=== PATIENT | female | born 1935 | race Caucasian/White ===

== ENCOUNTER 2019-11-01 21:01 | Inpatient (IN) | payer OTHER, MEDICAID ==
[~2019-11-01] VITALS: Ht 152.4 cm; Wt 105.7 kg
[~2019-11-01 21:01] MED LIST: CALCIUM CARBONATE PO; LEVO75TA7 PO; OMEG1CAP17 PO; OXYC-100 PO; TRAM50TA PO
[2019-11-01] MEDS ORDERED: MORPHINE SULFATE 4 MG/ML CPJ (NOT FOR IM USE) IV STA (22:48)
[2019-11-01] MEDS ORDERED: ONDANSETRON HCL 4MG/2ML INJ IV STA (22:48)
[2019-11-01] MEDS ORDERED: SODIUM CHLORIDE 0.9% 1,000 ML IV ONE (22:48)
[2019-11-01 23:13] LABS: BASOPHILS % 0.6 % (0.0-2.0); EOSINOPHILS % 0.8 % (0.0-5.0); HEMATOCRIT. 40.7 % (36.0-48.0); LYMPHOCYTES % 13.1 % (20.0-50.0); MEAN CORPUSCULAR HEMOGLOBIN 32.5 pg (28.0-32.0); MEAN CORPUSCULAR VOLUME 94.6 fL (81.0-99.0); MEAN PLATELET VOLUME 9.5 fl (7.4-10.4); MONOCYTES % 5.7 % (2.0-8.0); NEUTROPHILS % 79.8 % (40.0-76.0); PLATELET 218 x1000/uL (130-400); RED CELL DISTRIBUTION WIDTH 13.2 % (11.6-14.6)
[2019-11-01 23:19] LABS: CHLORIDE 110 mEq/L (98-107)
[2019-11-02 01:34] LABS: CLARITY URINE CLOUDY (CLEAR); COLOR URINE YELLOW (YELLOW); KETONES URINE NEGATIVE (NEGATIVE); LEUKOCYTE ESTERASE URINE 1+ (NEGATIVE); NITRITE URINE NEGATIVE (NEGATIVE); OCCULT BLOOD URINE NEGATIVE (NEGATIVE); PROTEIN URINE TRACE (NEGATIVE); SPECIFIC GRAVITY URINE 1.015 (1.005-1.030)
[2019-11-02] MEDS ORDERED: MORPHINE SULFATE 4 MG/ML CPJ (NOT FOR IM USE) IV ONE (02:15)
[2019-11-02 06:00] VITALS: BP 140/74
[2019-11-02] MEDS ORDERED: ONDANSETRON HCL 4MG/2ML INJ IV PRN (06:15)
[2019-11-02] MEDS: LEVOTHYROXINE SODIUM 75MCG TABLET PO SCH (08:22)
[2019-11-02 08:38] VITALS: BP 143/61
[2019-11-02] MEDS: MORPHINE SULFATE 4 MG/ML CPJ (NOT FOR IM USE) IV PRN ×2 (10:30→16:59)
[2019-11-02 12:00] VITALS: BP 137/73
[2019-11-02] MEDS: DEXT 5%/0.45% NACL 1000ML 1,000 ML IV SCH (15:54)
[2019-11-02 16:11] VITALS: BP 152/66
[2019-11-02] MEDS: CEFTRIAXONE 1 G PREMIX 50 ML IV SCH (16:55)
[2019-11-02 20:31] VITALS: BP 132/72
[2019-11-03 00:34] VITALS: BP 122/51
[2019-11-03] MEDS ORDERED: CHLORHEXIDINE GLUCONATE 4% EXTERNAL USE TOP SCH (07:00)
[2019-11-03] MEDS: LEVOTHYROXINE SODIUM 75MCG TABLET PO SCH (07:20)
[2019-11-03 08:19] VITALS: BP 173/76
[2019-11-03] MEDS ORDERED: MORPHINE SULFATE 2 MG/ML CPJ (NOT FOR IM USE) IV SCH (08:45)
[2019-11-03] MEDS ORDERED: BUPIVACAINE HCL/EPINEPHRINE/PF 0.5%/0.0005 10ML ONE (09:41)
[2019-11-03] MEDS ORDERED: FENTANYL CITRATE/PF 50MCG/ML 2ML VIAL ONE (09:52)
[2019-11-03] MEDS ORDERED: MIDAZOLAM HCL 2 MG/2 ML VIAL ONE (09:52)
[2019-11-03] MEDS ORDERED: EPHEDRINE SULFATE 50MG/ML VIAL ONE (09:56)
[2019-11-03] MEDS ORDERED: DEXAMETHASONE 4MG/ML 1ML VIAL ONE (10:18)
[2019-11-03] MEDS ORDERED: GLYCOPYRROLATE 0.2 MG/ML 2ML VIAL ONE (10:47)
[2019-11-03] MEDS ORDERED: SKIN ADHESIVE 0.7 GM EA TOP ONE (11:38)
[2019-11-03] MEDS ORDERED: ONDANSETRON HCL 4MG/2ML INJ ONE (12:13)
[2019-11-03] MEDS ORDERED: MAGNESIUM HYDROXIDE 400MG/5ML 30ML UDC PO PRN (12:30)
[2019-11-03] MEDS ORDERED: MORPHINE SULFATE 4 MG/ML CPJ (NOT FOR IM USE) IV PRN (12:30)
[2019-11-03] MEDS ORDERED: ONDANSETRON HCL 4MG/2ML INJ IV PRN (12:30)
[2019-11-03] MEDS ORDERED: ACETAMINOPHEN 325MG TABLET PO PRN (12:30)
[2019-11-03] MEDS ORDERED: HYDROCODONE/ACETAMINOPHEN 5/325MG TABLET PO PRN ×2 (12:30)
[2019-11-03] MEDS ORDERED: HYDRALAZINE 20MG/ML VIAL IV SCH (12:45)
[2019-11-03] MEDS ORDERED: HYDROMORPHONE HCL/PF 2MG/ML CPJ IV PRN (12:45)
[2019-11-03] MEDS ORDERED: HYDROMORPHONE HCL/PF 2MG/ML CPJ ONE (13:03)
[2019-11-03 16:18] VITALS: BP 111/52
[2019-11-03] MEDS: CEFTRIAXONE 1 G PREMIX 50 ML IV SCH (18:54)
[2019-11-03] MEDS: CEFAZOLIN 2,000 MG in DEXT 5% WATER 100 ML IV SCH (19:03)
[2019-11-03] MEDS: DOCUSATE SODIUM 100MG CAPSULE PO SCH (19:03)
[2019-11-03 19:31] LABS: HEMATOCRIT. 41.6 % (36.0-48.0); HEMOGLOBIN. 14.3 g/dL (12.0-16.0); MEAN CORPUSCULAR HEMOGLOBIN 32.4 pg (28.0-32.0); MEAN CORPUSCULAR VOLUME 94.2 fL (81.0-99.0); MEAN PLATELET VOLUME 9.7 fl (7.4-10.4); PLATELET 144 x1000/uL (130-400); RED BLOOD CELL COUNT 4.41 mill/uL (4.2-5.4); RED CELL DISTRIBUTION WIDTH 13.6 % (11.6-14.6)
[2019-11-03 19:39] LABS: CHLORIDE 111 mEq/L (98-107)
[2019-11-03 19:46] LABS: LDL CHOLESTEROL 67 mg/dL (5-100)
[2019-11-03 19:47] LABS: HDL CHOLESTEROL 47 mg/dL (40-59)
[2019-11-03 19:48] LABS: T4 FREE 1.46 ng/dL (0.76-1.46)
[2019-11-03 20:27] LABS: PLATELET ESTIMATE NORMAL
[2019-11-03 20:30] VITALS: BP 136/67
[2019-11-03] MEDS: MORPHINE SULFATE 2 MG/ML CPJ (NOT FOR IM USE) IV PRN (21:24)
[2019-11-03 23:56] VITALS: BP 102/51
[2019-11-04] MEDS: CEFAZOLIN 2,000 MG in DEXT 5% WATER 100 ML IV SCH (02:31)
[2019-11-04 04:52] VITALS: BP 131/62
[2019-11-04 06:12] LABS: CHLORIDE 110 mEq/L (98-107)
[2019-11-04 06:25] LABS: BASOPHILS % 0.1 % (0.0-2.0); HEMATOCRIT. 36.2 % (36.0-48.0); HEMOGLOBIN. 12.5 g/dL (12.0-16.0); LYMPHOCYTES % 9.7 % (20.0-50.0); MEAN CORPUSCULAR HEMOGLOBIN 32.5 pg (28.0-32.0); MEAN CORPUSCULAR VOLUME 94.3 fL (81.0-99.0); MEAN PLATELET VOLUME 10.2 fl (7.4-10.4); MONOCYTES % 9.7 % (2.0-8.0); NEUTROPHILS % 80.5 % (40.0-76.0); PLATELET 178 x1000/uL (130-400); RED BLOOD CELL COUNT 3.84 mill/uL (4.2-5.4); RED CELL DISTRIBUTION WIDTH 13.2 % (11.6-14.6)
[2019-11-04] MEDS: LEVOTHYROXINE SODIUM 75MCG TABLET PO SCH (06:52)
[2019-11-04] MEDS: MORPHINE SULFATE 2 MG/ML CPJ (NOT FOR IM USE) IV PRN ×3 (06:57→17:03)
[2019-11-04 08:00] VITALS: BP 116/45
[2019-11-04] MEDS: DOCUSATE SODIUM 100MG CAPSULE PO SCH ×2 (08:31→17:02)
[2019-11-04] MEDS: DEXT 5%/0.45% NACL 1000ML 1,000 ML IV SCH (08:32)
[2019-11-04] MEDS ORDERED: ENOXAPARIN 40MG/0.4ML SYR SUBCUT SCH ×2 (09:00)
[2019-11-04 12:00] VITALS: BP 106/57
[2019-11-04 16:00] VITALS: BP 138/65
[2019-11-04] MEDS: CEFTRIAXONE 1 G PREMIX 50 ML IV SCH (16:56)
[2019-11-04 17:47] VITALS: BP 138/65
[2019-11-04] MEDS ORDERED: ENOXAPARIN 30MG/0.3ML SYR SUBCUT SCH (21:00)
== END 2019-11-04 19:45 | DRG 481 ==
LOC: ER 21:01 → 6WST 11-02 02:10 → EDBEDREQTM 11-02 02:12 → EDBEDREQ 11-02 02:12 → EDBEDREQDT 11-02 02:12 → ENRESERV 11-02 04:12
PROVIDERS: ADMIT Internal Medicine; ATTEND Internal Medicine
PROC: 0QS706Z Reposition Left Upper Femur with Intramedullary Internal Fixation Device, Open Approach (ICD-10-PCS; principal; 2019-11-03)
PROC: BQ14ZZZ Fluoroscopy of Left Femur (ICD-10-PCS; 2019-11-03)
DX: S72.142A Displaced intertrochanteric fracture of left femur, initial encounter for closed fracture (principal); N39.0 Urinary tract infection, site not specified; M19.90 Unspecified osteoarthritis, unspecified site; M81.0 Age-related osteoporosis without current pathological fracture; E03.9 Hypothyroidism, unspecified; W01.0XXA Fall on same level from slipping, tripping and stumbling without subsequent striking against object, initial encounter; Y93.01 Activity, walking, marching and hiking; E78.5 Hyperlipidemia, unspecified; E78.00 Pure hypercholesterolemia, unspecified; I10 Essential (primary) hypertension; Z79.899 Other long term (current) drug therapy; Z90.49 Acquired absence of other specified parts of digestive tract; Y92.098 Other place in other non-institutional residence as the place of occurrence of the external cause; Y99.8 Other external cause status
CPT/HCPCS: 36415; 71045; 72170; 73502; 73552; 76000; 80048; 80061; 81003; 84439; 84443; 86850; 86900; 93005; 97163; 97166; 97530; 99285; J0171; J0360; J0690; J0696; J1100; J1170; J1650; J2250; J2270; J2405; J3010; J3490; J7030; J7060; A4315